=== PATIENT | female | born 2000 | race Two or more races ===

== ENCOUNTER 2024-09-10 20:04 | Emergency (ER) | payer MEDICAID, SELFPAY ==
[2024-09-10 20:04] VITALS: BMI 27.6
[2024-09-10 20:42] VITALS: BP 110/75; PULSE 90; RESP 16; TEMP 36.9; O2SAT 99
--- NOTE | 2024-09-10 21:09 | PD.EDRME ---
Rapid Medical Screening Exam RME Arrival date/time: 09/10/24 20:04 24F with no significant PMH presents to ED with 1 week of cough and some CP/SOB. Patient is also 28 weeks . Chief Complaint: Flu Like Symptoms Vital signs: Vital Signs Temperature 98.4 F 09/10/24 20:42 Pulse Rate 90 09/10/24 20:42 Respiratory Rate 16 09/10/24 20:42 Blood Pressure 110/75 09/10/24 20:42 Pulse Oximetry (%) 99 09/10/24 20:42 Oxygen Delivery Method Room Air 09/10/24 20:42
[2024-09-10 21:42] LABS: Basophils % (Auto) 0 % (0-2.5); Eosinophils # (Auto) 0.2 Thou/mm3 (0.0-0.5); Eosinophils % (Auto) 2 % (0-10); Hematocrit 28.3 % (36.0-46.0); Immature Granulocytes % (Auto) 0 % (0-0); Immature Granulocytes Auto 0.03 Thou/mm3 (0.00-0.00); Lymphocytes % (Auto) 20 % (10-50); Mean Corpuscular HGB Conc 30.7 g/dl (31.0-37.0); Mean Corpuscular Hemoglobin 21.1 pg (25.0-35.0); Mean Corpuscular Volume 69 fL (80-100); Monocytes # (Auto) 0.7 Thou/mm3 (0.0-0.8); Monocytes % (Auto) 7 % (0-12); Neutrophils # (Auto) 7.2 Thou/mm3 (1.8-7.7); Neutrophils % (Auto) 71 % (37-80); Nucleated Red Blood Cell % 0 /100 WBC (0); Platelet Count 248 Thou/mm3 (140-440); RDW Standard Deviation 40.8 fL (36.4-46.3); Red Blood Count 4.13 Miln/mm3 (4.00-5.20); White Blood Count 10.2 Thou/mm3 (3.6-11.0)
[2024-09-10 21:47] LABS: Hemoglobin 8.7 g/dL (12.0-16.0)
[2024-09-10 22:08] LABS: Alanine Aminotransferase 9 U/L (10-49); Albumin/Globulin Ratio 1.2 (1.2-2.2); Alkaline Phosphatase 111 U/L (46-116); Anion Gap 10 (7-16); Aspartate Amino Transferase 18 U/L (0-34); BUN/Creatinine Ratio 18 Ratio (12-20); Bilirubin,Total 0.4 mg/dL (0.3-1.2); Blood Urea Nitrogen 9 mg/dL (9-23); Carbon Dioxide 20.1 mMol/L (20.0-31.0); Chloride 108 mMol/L (98-107); Creatinine (Component) 0.5 mg/dL (0.6-1.3); Estimated Creatinine Clearance 157.4 mL/min (>60); Globulin 3.3 gm/dL (2.3-3.5); Glucose 79 mg/dL (74-106); Osmolality,Calculated 273 (275-295); Potassium 3.6 mMol/L (3.4-5.1); Procalcitonin 0.05 ng/ml (0.0-0.49); Sodium 138 mMol/L (136-145); Total Protein 7.3 gm/dL (5.7-8.2); Troponin I < 0.002 ng/mL (0.0-0.045); eGFR > 60 See Note
[2024-09-10 23:57] LABS: Path Review Blood Smear Sent to Pathologist
--- NOTE | 2024-09-11 03:33 | EDNOTE_ITS ---
<Statement entered by Aleah Neely MD - 09/11/24 05:44> I, Aleah Neely MD, have reviewed the history, exam, and assessment of the patient. I have evaluated the patient independently and agree with the plan of care documented by [ ]. All diagnostic studies were reviewed and discussed. I confirm the diagnosis as documented by the Resident. I was present during the Medical Decision Making for this patient. The patient's plan of care was created between myself and the Resident and consistent with our discussion of the patient's case. ED General RME/HPI General Chief complaint: Flu Like Symptoms Stated complaint: COUGH AND CHEST PAIN X1 WEEK; 28 WEEKS PREG Arrival date/time: 09/10/24 20:04 RME / HPI RME / HPI narrative: 09/10/24 20:04 24F w/o PMhx and is 28 weeks presents to ED with right sided chest pain x1 day. Th right sided chest pain is localized to her lateral right chest and shoulder. Patient also endorses SOB and green productive cough. She states that she started with diarrhea and subjective fever 2 days ago. Patient denies MENESES, dizziness, light headedness, nausea/vomitting, or constipation. Patient endorses sick contacts?her 2 younger sons are both sick with cough and shortness of breath?similar symptoms as her. Patient denies headache, fever, chills, palpitation, dizziness. MD complaint: chest pain Onset (ago): week(s) Related Data Home Medications ?Medication ?Instructions ?Recorded ?Confirmed jjkaqxqv-tve-Fa-FA 1 mg tab PO 08/08/20 tablet Allergies Allergy/AdvReac Type Severity Reaction Status Date / Time Penicillins Allergy Unknown DIZZINESS Verified 09/10/24 20:07 Past Medical History Surgical History SURGICAL: Negative Section ED Exam Narrative Physical exam: Constitutional: well-developed, well-nourished, in no acute distress, lying in bed. HEENT: NCAT, EOMI, reactive round pupils b/l, patent nares b/l, moist mucous membranes, on room air Lung: CTAB, no wheezing, no rhonchi, no crackles Heart: Regular S1S2, no murmurs, gallops, or rubs Abdomen: Soft, non-distended, non-tender, ++bowel sounds Extremities: No cyanosis, clubbing,no edema of b/l legs, 2+ dorsalis ppedis pulses present b/l Neurologic: No focal sensory or motor deficits noted, AOx3, appropriate affect Skin: Warm, dry, no lesions or rashes noted Course Quality Measures none Orders Category Date Time Status Bedside COVID-19 Antigen Test NOW Care 09/10/24 20:11 Active Bedside Influenza A&B Antigen Test NOW Care 09/10/24 20:11 Completed EKG (ED ONLY) *Do not use* NOW Care 09/10/24 21:09 Completed EKG (ED Only) Stat Exams 09/10/24 21:09 Ordered CBC Stat Lab 09/10/24 21:36 Completed Comprehensive Metabolic Panel Stat Lab 09/10/24 21:36 Completed Path Review Blood Smear Stat Lab 09/10/24 21:36 Completed Procalcitonin Stat Lab 09/10/24 21:36 Completed Troponin I Stat Lab 09/10/24 21:36 Completed Acetaminophen Tab [Tylenol Tab] Med 09/11/24 03:32 Once 650 mg PO X1 ONE Vital Signs Vital signs: Vital Signs Temperature 98.4 F 09/10/24 20:42 Pulse Rate 90 09/10/24 20:42 Respiratory Rate 16 09/10/24 20:42 Blood Pressure 110/75 09/10/24 20:42 Pulse Oximetry (%) 99 09/10/24 20:42 Oxygen Delivery Method Room Air 09/10/24 20:42 MDM Patient data External records reviewed:: [facility] previous records Clinical information provided by:: patient Social determinants that could affect healthcare access:: none Patient has the following chronic illnesses:: None How is presenting disease/condition affected by chronic disease/condition?: c aused by Evaluation data The following diagnostics were reviewed and interpreted by me:: EKG tracing(s) Lab and/or radiology exams considered but not ordered:: N/A Interpretation Summary: EG shows sinus rhythm. Hgb 8.7, WBC within normal limits Medications Medications considered but not ordered:: None Medication administrations:: tylenol Consultations Consultation(s) initiated? (list below): No Diagnosis Differential Diagnosis ED Complaint MDM: pneumonia Most likely diagnosis given after review of the tests above:: URI Admission Indicated Admission indicated?: not indicated Explain why admission is indicated or not indicated:: Not indicated as patient appears with URI-like symptoms. Her right chest lines up closely with musculoskeletal pain. Patient takes her pill regularly. Admission Request Was there a request for admission?: No Disposition Plan Disposition Plan: Discharge Discharge Attestation Discharge Attestation: The patient and all family members were given an opportunity to ask questions and understood the discharge instructions. Discharge instructions specifically effects, indications for sooner follow up or return to the emergency department, and the expected course of current diagnosis. Patient condition: Stable Medical Decision Making Differential Diagnosis Differential Diagnosis: pneumonia Medical Records Medical records reviewed: Yes I reviewed the patient's medical records. Lab Data 09/10/24 21:36 09/10/24 21:36 Labs: Lab Results 09/10/24 Range/Units 21:36 WBC 10.2 (3.6-11.0) Thou/mm3 RBC 4.13 (4.00-5.20) Miln/mm3 Hgb 8.7 L (12.0-16.0) g/dL Hct 28.3 L (36.0-46.0) % MCV 69 L (80-100) fL MCH 21.1 L (25.0-35.0) pg MCHC 30.7 L (31.0-37.0) g/dl RDW Std Deviation 40.8 (36.4-46.3) fL Plt Count 248 (140-440) Thou/mm3 Neut % (Auto) 71 (37-80) % Lymph % (Auto) 20 (10-50) % [place] % (Auto) 7 (0-12) % Eos % (Auto) 2 (0-10) % Baso % (Auto) 0 (0-2.5) % Neut # (Auto) 7.2 (1.8-7.7) Thou/mm3 Lymph # (Auto) 2.0 (1.0-4.8) Thou/mm3 [place] # (Auto) 0.7 (0.0-0.8) Thou/mm3 Eos # (Auto) 0.2 (0.0-0.5) Thou/mm3 Baso # (Auto) 0.0 (0.0-0.2) Thou/mm3 Immature Gran # (Auto) 0.03 H (0.00-0.00) Thou/mm3 Absolute Nucleated RBC 0.00 (0.00-0.00) Thou/mm3 Immature Gran % 0 (0-0) % Nucleated RBC % 0 (0) /100 WBC Smear Path Review Sent to Pathologist Sodium 138 (136-145) mMol/L Potassium 3.6 (3.4-5.1) mMol/L Chloride 108 H (98-107) mMol/L Carbon Dioxide 20.1 (20.0-31.0) mMol/L Anion Gap 10 (7-16) BUN 9 (9-23) mg/dL Creatinine 0.5 L (0.6-1.3) mg/dL Estim Creat Clear Calc 157.4 (>60) mL/min eGFR > 60 (60 - ) See Note BUN/Creatinine Ratio 18 (12-20) Ratio Glucose 79 (74-106) mg/dL Calculated Osmolality 273 L (275-295) Calcium 9.0 (8.3-10.6) mg/dL Corrected Calcium 9.0 (8.5-10.1) mg/dL Total Bilirubin 0.4 (0.3-1.2) mg/dL AST 18 (0-34) U/L ALT 9 L (10-49) U/L Alkaline Phosphatase 111 (46-116) U/L Troponin I < 0.002 (0.0-0.045) ng/mL Total Protein 7.3 (5.7-8.2) gm/dL Albumin 4.0 (3.5-5.0) gm/dL Globulin 3.3 (2.3-3.5) gm/dL Albumin/Globulin Ratio 1.2 (1.2-2.2) Procalcitonin 0.05 (0.0-0.49) ng/ml Discharge Plan Plan Patient Disposition: HOME (Self Care) Health Concerns: Please follow up with PCP in 5-7days. If symptoms worsen, return to the ED. Prescriptions/Referrals Prescriptions/Med Rec: No Action 1 mg Tablet PO Referrals: Jose Sinclair MD [Primary Care Provider] - In 1 week Problem List Clinical Impression: Upper respiratory infection, Viral infection, Bronchitis Patient/Caregiver Discharge Instructions Print Language: Serbian Stand Alone Forms: Mary Lou Award Info., Patient Portal Info Letter
[2024-09-11] MEDS: ACETAMINOPHEN 325 MG TABLET 650 MG PO (03:43)
[2024-09-11 03:55] VITALS: BP 111/69; PULSE 96; TEMP 36.6; O2SAT 99
== END 2024-09-11 04:38 | disposition home or self-care (01) ==
PROVIDERS: Physician Assistant; Emergency Provider Emergency Medicine; PCP Family Medicine
DX: O99.512 Diseases of the respiratory system complicating pregnancy, second trimester (principal); J40 Bronchitis, not specified as acute or chronic; J06.9 Acute upper respiratory infection, unspecified; B97.89 Other viral agents as the cause of diseases classified elsewhere; R94.31 Abnormal electrocardiogram [ECG] [EKG]; Z3A.28 28 weeks gestation of pregnancy
CPT/HCPCS: 36415; 80053; 84145; 84484; 85025; 87400; 87811; 93005; 99283; A9270

== ENCOUNTER 2024-10-09 15:03 | Observation (INO) | payer MEDICAID, SELFPAY ==
[2024-10-09] VITALS (144 sets, daily range): BP systolic 95–191; BP diastolic 54–107; PULSE 80–123; RESP 15–100; TEMP 36.5–37.1; O2SAT 90–100; BMI 27.8
[2024-10-09] MEDS: SODIUM CHLORIDE 0.9% 1000 ML 1,000 ML 100 ML IV (15:50)
[2024-10-09 16:44] LABS: Basophils % (Auto) 1 % (0-2.5); Eosinophils # (Auto) 0.1 Thou/mm3 (0.0-0.5); Eosinophils % (Auto) 1 % (0-10); Hematocrit 24.9 % (36.0-46.0); Immature Granulocytes % (Auto) 0 % (0-0); Immature Granulocytes Auto 0.03 Thou/mm3 (0.00-0.00); Lymphocytes # (Auto) 1.9 Thou/mm3 (1.0-4.8); Lymphocytes % (Auto) 23 % (10-50); Mean Corpuscular HGB Conc 30.5 g/dl (31.0-37.0); Mean Corpuscular Hemoglobin 20.1 pg (25.0-35.0); Mean Corpuscular Volume 66 fL (80-100); Monocytes # (Auto) 0.8 Thou/mm3 (0.0-0.8); Monocytes % (Auto) 9 % (0-12); Neutrophils # (Auto) 5.6 Thou/mm3 (1.8-7.7); Neutrophils % (Auto) 67 % (37-80); Nucleated Red Blood Cell % 0 /100 WBC (0); Platelet Count 261 Thou/mm3 (140-440); RDW Standard Deviation 42.2 fL (36.4-46.3); Red Blood Count 3.78 Miln/mm3 (4.00-5.20); White Blood Count 8.4 Thou/mm3 (3.6-11.0)
[2024-10-09 16:47] LABS: Hemoglobin 7.6 g/dL (12.0-16.0)
[2024-10-09 17:05] LABS: Albumin/Globulin Ratio 1.4 (1.2-2.2); Alkaline Phosphatase 120 U/L (46-116); Anion Gap 9 (7-16); Aspartate Amino Transferase 11 U/L (0-34); BUN/Creatinine Ratio 18 Ratio (12-20); Bilirubin,Total 0.4 mg/dL (0.3-1.2); Blood Urea Nitrogen 9 mg/dL (9-23); Calcium 8.6 mg/dL (8.3-10.6); Calcium (Corrected) 8.6 mg/dL (8.5-10.1); Carbon Dioxide 21.2 mMol/L (20.0-31.0); Chloride 106 mMol/L (98-107); Creatinine (Component) 0.5 mg/dL (0.6-1.3); Estimated Creatinine Clearance 157.9 mL/min (>60); Globulin 2.8 gm/dL (2.3-3.5); Glucose 68 mg/dL (74-106); Osmolality,Calculated 268 (275-295); Potassium 3.9 mMol/L (3.4-5.1); Sodium 136 mMol/L (136-145); Total Protein 6.8 gm/dL (5.7-8.2); eGFR > 60 See Note
[2024-10-09 17:11] LABS: Alanine Aminotransferase < 7 U/L (10-49)
[2024-10-10] VITALS (20 sets, daily range): BP systolic 98–114; BP diastolic 54–58; PULSE 77–93; RESP 16; TEMP 36.9–37.1; O2SAT 91–100
== END 2024-10-10 01:20 | disposition home or self-care (01) ==
PROVIDERS: Admitting Provider Advanced Practice Midwife; Visit Provider Advanced Practice Midwife
DX: Z34.83 Encounter for supervision of other normal pregnancy, third trimester (principal); Z3A.35 35 weeks gestation of pregnancy
CPT/HCPCS: 36415; 36430; 59025; 59899; 80053; 85025; 86850; 86870; 86900; 86901; 86921; 86922; J7030; P9016

== ENCOUNTER 2024-11-04 00:38 | Observation (INO) | payer MEDICAID, SELFPAY ==
[2024-11-04] VITALS (12 sets, daily range): BP systolic 100–122; BP diastolic 55–74; PULSE 78–98; RESP 16–97; TEMP 36.6; O2SAT 97–98; BMI 28.5
[2024-11-04 01:40] LABS: ROM Kit Lot # 57809118; ROM Swab Mixed By: DELEN1; Rupture of Fetal Membranes Negative (Negative); Swb Mxed in Solvent 1 min? Yes
== END 2024-11-04 01:42 | disposition home or self-care (01) ==
PROVIDERS: Admitting Provider Obstetrics & Gynecology; Visit Provider Obstetrics & Gynecology
DX: O47.1 False labor at or after 37 completed weeks of gestation (principal); Z3A.39 39 weeks gestation of pregnancy
CPT/HCPCS: 59025; 59899; 84112

== ENCOUNTER 2024-11-06 00:35 | Inpatient (IN) | payer MEDICAID, SELFPAY ==
[2024-11-06] VITALS (105 sets, daily range): BP systolic 104–138; BP diastolic 56–98; PULSE 67–127; RESP 16–100; TEMP 36.3–36.9; O2SAT 89–100; BMI 28.5
[2024-11-06] MEDS: RINGERS LACTATED 1000 ML 1,000 ML 125 ML IV ×2 (02:10→02:48)
[2024-11-06 02:49] LABS: Basophils % (Auto) 0 % (0-2.5); Eosinophils % (Auto) 0 % (0-10); Hematocrit 37.2 % (36.0-46.0); Hemoglobin 11.8 g/dL (12.0-16.0); Immature Granulocytes % (Auto) 0 % (0-0); Immature Granulocytes Auto 0.04 Thou/mm3 (0.00-0.00); Lymphocytes # (Auto) 2.8 Thou/mm3 (1.0-4.8); Lymphocytes % (Auto) 27 % (10-50); Mean Corpuscular HGB Conc 31.7 g/dl (31.0-37.0); Mean Corpuscular Hemoglobin 22.5 pg (25.0-35.0); Mean Corpuscular Volume 71 fL (80-100); Monocytes # (Auto) 0.8 Thou/mm3 (0.0-0.8); Monocytes % (Auto) 7 % (0-12); Neutrophils % (Auto) 65 % (37-80); Nucleated Red Blood Cell % 0 /100 WBC (0); Platelet Count 192 Thou/mm3 (140-440); RDW Standard Deviation 59.8 fL (36.4-46.3); Red Blood Count 5.24 Miln/mm3 (4.00-5.20); White Blood Count 10.7 Thou/mm3 (3.6-11.0)
[2024-11-06 03:06] LABS: Amphetamine/Metham Scrn,Ur OB Negative (Negative); Benzoylecgonine Screen, Ur OB Negative (Negative); Opiate Screen,Urine OB Negative (Negative); THC Screen,Urine OB Negative (Negative)
[2024-11-06] MEDS: OXYTOCIN INJ 10 UNIT/ML VIAL IM (06:42)
[2024-11-06] MEDS: OXYTOCIN in NS 20 units 20 UNIT/1,000 ML BAG 125 UNIT IV (06:43)
[2024-11-06] MEDS: IBUPROFEN TAB 400 MG TABLET 800 MG PO ×2 (06:55→16:19)
--- NOTE | 2024-11-06 06:59 | ESHP_ITS ---
Documentation for date of: 11/06/24 OB Labor/Induct. HPI History of Present Illness Chief complaint: labor : 4 Para: 3 Term pregnancies: 3 pregnancies: 0 Living children: 3 History of Abortions: Spontaneous and Elective: 0 History of sections: No History of : No Date of last menstrual period: 01/31/24 DUGLAS: 11/07/24 Gestational Age (weeks): 39 Gestational Age (days): 6 Gestational age based on last menstrual period: 40 History of present illness: This is a 24-year-old for 3 admit to labor and delivery complains of contractions since 1900. Patient been followed at [facility] care. First visit 23 weeks. Last period January 31, 2024. Estimated due date is November 07, 2024. So patient is 39 weeks 6 today. Denies social habits. Denies surgery. Denies chronic illness. Patient is AB+, antibody screen negative, RPR nonreactive, rubella immune, hepatitis B-, hep C negative, HIV negative, GC and Chlamydia were negative. GBS negative. She had a negative NIPT and carrier screens. An anatomy scan showed normal anatomy. History of Present Dating criteria: LMP confirmed by 2nd trimester US Adequate Care: No (late to care) Ultrasounds: normal mid trimester US Obstetrical complications: none Medical complications: none Labs Labs: Positive: Chlamydia and Negative: Hepatitis B, HIV, Gonorrhea and Group Beta Strep Review of Systems Review of Systems Systems Reviewed: All systems reviewed, normal except as documented Past Medical History Surgical History SURGICAL: Negative Section Meds Home Medications and Allergies Home Medications ?Medication ?Instructions ?Recorded ?Confirmed ?Type yicurfut-aei-[id number]-FA 1 mg 1 tab PO QDAY 08/08/2 0 11/06/24 History tablet Allergies Allergy/AdvReac Type Severity Reaction Status Date / Time Penicillins Allergy Unknown DIZZINESS Verified 11/06/24 01:16 OB Exam Physical Exam Vital signs: Temp Pulse Resp BP Pulse Ox 97.3 F 90 16 108/63 95 11/06/24 00:53 11/06/24 06:51 11/06/24 00:53 11/06/24 06:51 11/06/24 06:59 Narrative: Normal heart rate and rhythm. Lungs clear no wheezes. Gravid abdomen. Gynecoid pelvis. Estimated weight 7 pounds. Vaginal exam on admission was 70%, 4-5, -3. Vertex. Intact. heart rate is category 1 accelerations and moderate variability and regular contractions Detailed Labor and Delivery Exam Dilation (cm): 4-5 Effacement (%): 70 Cervix position: mid station: -3 Consistency: soft Presentation: Vertex Cervical ripeness score: 8 Membranes: intact Baseline heart rate: 135 monitor accelerations: 15x15 monitor decelerations: None terminal supervisor variability: Moderate (11-25) Contraction frequency (min): 3-4 Contraction duration (sec): 30 Tachysystole: No Contraction intensity: Moderate OB Results Labs 11/06/24 02:12 Labs: Short CBC 11/06/24 Range/Units 02:12 WBC 10.7 (3.6-11.0) Thou/mm3 Hgb 11.8 L (12.0-16.0) g/dL Hct 37.2 (36.0-46.0) % Plt Count 192 D (140-440) Thou/mm3 Impressions Impression: labor OB Assessment & Plan Additional Plan Induction method: none Plan: consult MD lind
[2024-11-06] MEDS: TRANEXAMIC ACID 1,000 MG IVPB 1,000 MG/100 ML BAG 200 MG IV (07:33)
[2024-11-06] MEDS: DOCUSATE SOD 100 MG CAPSULE PO ×2 (11:52→20:57)
[2024-11-06] MEDS: ACETAMINOPHEN 325 MG TABLET 650 MG PO ×2 (11:53→20:56)
[2024-11-06 14:59] LABS: Syphilis Nonreactive (Nonreactive)
[2024-11-06 15:46] LABS: Basophils % (Auto) 0 % (0-2.5); Eosinophils % (Auto) 0 % (0-10); Hemoglobin 9.1 g/dL (12.0-16.0); Immature Granulocytes % (Auto) 0 % (0-0); Immature Granulocytes Auto 0.03 Thou/mm3 (0.00-0.00); Lymphocytes # (Auto) 2.2 Thou/mm3 (1.0-4.8); Lymphocytes % (Auto) 21 % (10-50); Mean Corpuscular HGB Conc 31.4 g/dl (31.0-37.0); Mean Corpuscular Hemoglobin 22.5 pg (25.0-35.0); Mean Corpuscular Volume 72 fL (80-100); Monocytes # (Auto) 0.8 Thou/mm3 (0.0-0.8); Monocytes % (Auto) 8 % (0-12); Neutrophils # (Auto) 7.1 Thou/mm3 (1.8-7.7); Neutrophils % (Auto) 70 % (37-80); Nucleated Red Blood Cell % 0 /100 WBC (0); Platelet Count 164 Thou/mm3 (140-440); RDW Standard Deviation 59.7 fL (36.4-46.3); Red Blood Count 4.04 Miln/mm3 (4.00-5.20); White Blood Count 10.2 Thou/mm3 (3.6-11.0)
[2024-11-07 03:45] VITALS: BP 118/79; PULSE 60; RESP 16; TEMP 36.6; O2SAT 100
[2024-11-07] MEDS: IBUPROFEN TAB 400 MG TABLET 800 MG PO ×2 (03:48→11:50)
[2024-11-07 08:00] VITALS: BP 102/67; PULSE 60; RESP 16; TEMP 36.6; O2SAT 100
[2024-11-07] MEDS: DOCUSATE SOD 100 MG CAPSULE PO (08:46)
--- NOTE | 2024-11-07 08:58 | PC.SS ---
Update: SS conducted bedside contact with the patient to address nursing referral indicating that patient was late to care at 23 weeks.? SS introduced self and role.? FOB at bedside, Israel Combs. ?SS asked for permission to speak in front of FOB. Patient was agreeable.? Patient confirmed late to care due to not knowing and having three other children at home. Spanish Interpreter, Sylvie Morton provided OB services.? Patient has three other children in the home ages, 3, 4, 7 and now NB. Patient has not picked out a art glass designer yet. Patient delivered, baby boy, Jules bansal. Patient states she plans on combo feeding, breast and bottle. Patient confirmed no history of CPS, drug/alcohol, DV or mental health history.? Patient is aligned with WIC and FS.? No TANF. No history of DV and no history of mental illness. No further intervention required at this time. Key Person will be available to address any further concerns. SS updated bedside nurse.
[2024-11-07 11:52] VITALS: BP 128/80; PULSE 64; RESP 16; TEMP 36.7; O2SAT 100
--- NOTE | 2024-11-07 12:14 | ESDS_ITS ---
DS: Providers Provider Date of admission: 11/06/24 01:57 Primary care physician: Physician No Primary/Family Admitting Provider: Manjinder Williamson MD Attending Provider on Admission: Sylvie Morton CNM Consults: 11/06/24 07:42 Referral Routine Comment: Attending Provider on DC: Michelle Crowell MD Discharging Provider: Michelle Crowell MD DS: Diagnosis Discharge Diagnosis (1) Active labor at term: Status: Acute (2) hemorrhage: Status: Acute (3) Anemia, : Status: Acute Problem List Completed Was Problem List Reviewed/Reconciled?: Yes Summary/Hosp Course Brief History: Patient is a 24yo D2lobN6 s/p at term complicated by PPH after presenting in active labor, delivering on 11/06/24. She has had an uncomplicated course, meeting all milestones and feels ready for discharge home. She is ambulating without lightheadedness, tolerating regular diet no n/v, spontaneously voiding without issue. She has no chest pain or shortness of breath. No fevers or chills. Minimal, appropriate discomfort. Vitals normal, benign exam. Hemodynamically stable with no evidence of infection. PP Hgb 9.1. Rx iron to pharmacy. Status at Discharge Functional status at discharge: independent ambulation Overall status at discharge: patient is back to baseline Time Spent with Patient Time attestation: Total time spent providing and/or coordinating discharge services: Exam Vital Signs Temp Pulse Resp BP Pulse Ox O2 Del Method 98.1 F 64 16 128/80 100 Room Air 11/07/24 11:52 11/07/24 11:52 11/07/24 11:52 11/07/24 11:52 11/07/24 11:52 11/07/24 11:52 Narrative Exam General: well developed, well nourished, no acute distress, conversant Cardiac: normal heart rate Lungs: breathing without distress Abdomen: soft, post-gravid, non-tender, no rebound or guarding, Fundus firm at u-3cm. Extremities: no pain with palpation of calves, trace edema of BLE Discharge Plan Plan Patient Disposition: HOME (Self Care) Patient condition on transfer: Stable Prescriptions/Referrals Prescriptions/Med Rec: New docusate sodium 100 mg Capsule 100 mg PO BID 10 Days Qty: 20 0RF ibuprofen 800 mg tablet 800 mg PO Q8H PRN (Reason: See Comments) 10 Days Qty: 30 0RF ferrous sulfate 325 mg (65 mg iron) tablet 325 mg PO QDAY Qty: 30 0RF Continued yruqugqd-hrt-Fg-FA 1 mg Tablet 1 tab PO QDAY Referrals: No Primary/Family,Physician [Primary Care Provider] - Patient/Caregiver Discharge Instructions Discharge Activity: activity as tolerated and other Other Discharge Activity Instructions:: vaginal rest and no heavy lifting greater than 10 pounds for 6 weeks Other Discharge Diet Instructions: regular diet Education Materials: After a Vaginal Print Language: Grenadian Activity Restrictions/Additional Instructions: follow up for visit in 4 weeks, call clinic for appointment Stand Alone Forms: Mary Lou Award Info., Patient Portal Info Letter Discharge Order Discharge Orders: Discharge (Routine); Ordered 11/07/24 Ordered By: Michelle Crowell Planned Discharge Date 11/07/24 (2) hemorrhage Qualifiers: hemorrhage type: other immediate Qualified Code(s): O72.1 - Other immediate hemorrhage
== END 2024-11-07 17:50 | disposition home or self-care (01) | DRG 560 ==
LOC: S4SX 08:53 → S4NX 09:05
PROVIDERS: Admitting Provider Obstetrics & Gynecology; Visit Provider Advanced Practice Midwife
DX: O72.1 Other immediate postpartum hemorrhage (principal); O90.81 Anemia of the puerperium; Z37.0 Single live birth; Z3A.39 39 weeks gestation of pregnancy; Z88.0 Allergy status to penicillin
CPT/HCPCS: 36415; 59409; 80307; 85025; 86780; 86850; 86900; 86901; 94762; J2590; J2795; J3490; J7120; A9270

== ENCOUNTER 2024-12-10 00:28 | Emergency (ER) | payer MEDICAID, SELFPAY ==
[2024-12-10 00:29] VITALS: BMI 23.8
--- NOTE | 2024-12-10 01:22 | PD.EDDENTL ---
ED Dental RME/HPI General Chief complaint: Dental/Oral/Throat Stated complaint: THROAT PAIN Time Seen by Provider: 12/10/24 00:42 Arrival date/time: 12/10/24 00:28 24-year-old female reports with complaints of a sore throat x 3 days. Patient denies any fever chills abdominal pain nausea or vomiting. Patient states that she has a history of pharyngitis but she has not had an infection in several years. Patient also reports not taking any medications for symptoms Limitations: no limitations Related Data Home Medications ?Medication ?Instructions ?Recorded ?Confirmed rdttwuoe-qyb-[id number]-FA 1 mg 1 tab PO QDAY 08/08/20 11/06/24 tablet Previous Rx's ?Medication ?Instructions ?Recorded ferrous sulfate 325 mg (65 mg 325 mg PO QDAY #30 tabs 11/07/24 iron) tablet azithromycin 200 mg/5 mL oral See Rx Instructions PO .COMPLEX 12/10/24 suspension #37.5 mL Allergies Allergy/AdvReac Type Severity Reaction Status Date / Time Penicillins Allergy Unknown DIZZINESS Verified 11/06/24 01:16 Review of Systems Constitutional Constitutional: Denies chills, Denies fever(s) and Denies headache(s) ENT Ears, Nose, Mouth, and Throat: Denies headache(s), Denies nasal congestion, Reports sore throat, Denies tongue swelling and Denies vertigo Cardiovascular Cardiovascular: Denies chest pain and Denies dyspnea Respiratory Respiratory: Denies cough and Denies dyspnea Integumentary/Breasts Skin/Breast: Denies erythema and Denies rash Neurologic Neurologic: Denies headache(s) and Denies vertigo Allergic/Immunologic Allergic/Immunologic: Denies tongue swelling Past Medical History Past Medical History NEUROLOGIC: Negative Neurological Disorders CARDIAC: Negative Cardiac Disorders or Congestive Heart Failure RESPIRATORY: Negative Chronic Obstructive Pulmonary Disease (COPD) GASTROINTESTINAL: Negative Gastrointestinal Disorders, Hepatitis or Colorectal Cancer GENITOURINARY: Negative Genitourinary Disorders, Renal Disease or Prostate Cancer REPRODUCTIVE: Negative Breast Cancer or Testicular Cancer MUSCULOSKELETAL: Negative Musculoskeletal Disorders or Bone Cancer ENDOCRINE: Negative Endocrine Disorders, Diabetes Mellitus Type 1 or Diabetes Mellitus Type 2 HEMATOLOGIC: Negative Blood Disorders OTHER HISTORY: Negative Hospitalization, Autoimmune Disease, Down Syndrome, Developmental Delay, Shingles, Falls, Blood Transfusions, Blood Transfusion Reaction, Anesthesia Reactions, Organ Transplant, Chemotherapy, Radiation Therapy, Hyperbaric Therapy, MRSA, VRSA, Vancomycin-Resistant Enterococci, Human Immunodeficiency Virus (HIV), Chicken Pox, Measles, Mumps, Rubella (Gibraltarian Measles), Pertussis, Clostridium Difficile, Cancer, Breast Cancer, Cervical Cancer, Colorectal Cancer, Lung Cancer, Ovarian Cancer, Prostate Cancer or Testicular Cancer Family History FAMILY HISTORY: Positive Family Cardiac Disorders (pt father htn); Negative Family Psychiatric Problems, Family Respiratory Disorders, Family Gastrointestinal Problems, Family Cancer, Family Surgery or Family Anesthesia Reaction Surgical History SURGICAL: Negative Section or Organ Transplant Social History SMOKING STATUS: Never smoker SECOND HAND EXPOSURE: No ED Exam General Limitations: Present no limitations General appearance: Present alert and in no apparent distress Head Head exam: Present atraumatic Eye Eye exam: Present normal appearance, PERRL and EOMI ENT ENT exam: Present normal exam and mucous membranes moist; Absent normal oropharynx (Posterior pharynx injected) Neck Neck exam: Present normal inspection, full ROM, trachea midline and lymphadenopathy (Bilateral submandibular lymphadenopathy); Absent tenderness Chest Chest inspection: Present normal inspection and symmetric chest wall rise Respiratory Respiratory exam: Present normal lung sounds bilaterally Cardiovascular Cardiovascular exam: Present regular rate, normal rhythm and normal heart sounds Abdominal Exam Abdominal exam: Present soft and normal bowel sounds Extremities Exam Extremities exam: Present normal inspection and full ROM Back Exam Back exam: Present normal inspection and full ROM Neurological Exam Neurological exam: Present alert, oriented X3 and CN II-XII intact Psychiatric Psychiatric exam: Present normal affect and normal mood Skin Skin exam: Present warm, dry, intact and normal color Course Quality Measures none Dental / Oral Patient data External records reviewed:: None Clinical information provided by:: patient Social determinants that could affect healthcare access:: none Patient has the following chronic illnesses:: none How is presenting disease/condition affected by chronic disease/condition?: no chronic disease Evaluation data The following diagnostics were reviewed and interpreted by me:: other (specify) (none) Lab and/or radiology exams considered but not ordered:: mono and strep Interpretation Summary: n/a Medications / Prescriptions Medications or Prescriptions considered but not ordered:: none Medication administrations:: none Consultations Consultation(s) initiated? (list below): No Diagnosis Most likely diagnosis given after review of the tests above:: strep pharyngitis Admission Indicated Admission indicated?: not indicated Admission Request Was there a request for admission?: No Disposition Plan Disposition Plan: Discharge Discharge Attestation Discharge Attestation: The patient and all family members were given an opportunity to ask questions and understood the discharge instructions. Discharge instructions specifically effects, indications for sooner follow up or return to the emergency department, and the expected course of current diagnosis. Patient condition: Stable Discharge Plan Plan Patient Disposition: HOME (Self Care) Prescriptions/Referrals Prescriptions/Med Rec: New azithromycin 200 mg/5 mL suspension for reconstitution See Rx Instructions .ROUTE .COMPLEX Qty: 37.5 0RF Rx Instructions: take 12.5 mL (500 mg) by mouth today (day 1), then 6.25 mL (250 mg) daily for 4 days (days 2-5) No Action pywzuare-vff-Tv-FA 1 mg Tablet 1 tab PO QDAY ferrous sulfate 325 mg (65 mg iron) tablet 325 mg PO QDAY Qty: 30 0RF Problem List Clinical Impression: Pharyngitis Patient/Caregiver Discharge Instructions Discharge Activity: activity as tolerated Education Materials: Self-Care for Sore Throats Additional Instructions: Take medications as directed hydrate well follow with your primary care provider if no improvement in 3 days with medication Print Language: Cuban Stand Alone Forms: Mary Lou Award Info., Patient Portal Info Letter
[2024-12-10 01:26] VITALS: BP 122/90; PULSE 97; RESP 18; TEMP 37.3; O2SAT 97
[2024-12-10 02:03] VITALS: RESP 18
== END 2024-12-10 02:04 | disposition home or self-care (01) ==
LOC: SERX 01:39
PROVIDERS: Emergency Provider Emergency Medicine; PCP Family Medicine
DX: J02.9 Acute pharyngitis, unspecified (principal)
CPT/HCPCS: 99281